=== PATIENT | male | born 1995 | race Caucasian/White ===

== ENCOUNTER 2019-02-20 16:33 | Emergency (ER) | payer BC, MEDICAID ==
[2019-02-20 17:00] VITALS: BP 128/84
--- NOTE | 2019-02-20 17:30 | EDM.PDOCBH ---
ED HPI GENERAL MEDICAL PROBLEM - General Chief Complaint: Behavioral/Psych Stated Complaint: HEART RACING HAD A PAST PANIC ATTACK COUPLE DAYS Time Seen by Provider: 02/20/19 17:21 Source of Information: Reports: Patient History Limitations: Reports: No Limitations - History of Present Illness INITIAL COMMENTS - FREE TEXT/NARRATIVE: [employer] pt was playing video games and became very panicy. He has continued to feel that way since that time. He feels like his pulse is rapid and at this time it is 60. Onset: Other ( started lex[employer]. ) Duration: Hour(s): Location: Reports: Chest Associated Symptoms: Reports: No Other Symptoms - Related Data Allergies Allergy/AdvReac Type Severity Reaction Status Date / Time No Known Allergies Allergy Verified 02/20/19 16:47 Home Meds: Home Meds PARoxetine HCl [Paroxetine HCl] 02/20/19 [History] Past Medical History - Past Health History Medical/Surgical History: Denies Medical/Surgical History Social & Family History - Tobacco Use Smoking Status *Q: Current Every Day Smoker Years of Tobacco use: 10 Packs/Tins Daily: 0.5 ED ROS GENERAL - Review of Systems Review Of Systems: See Below Constitutional: Reports: No Symptoms HEENT: Reports: No Symptoms Respiratory: Reports: No Symptoms Cardiovascular: Reports: Other (pt felt like his heart is racing. ) Endocrine: Reports: No Symptoms GI/Abdominal: Reports: No Symptoms : Reports: No Symptoms Musculoskeletal: Reports: Hand Pain Skin: Reports: No Symptoms Neurological: Reports: No Symptoms ED EXAM, BEHAVIORAL HEALTH - Physical Exam Exam: See Below Text/Narrative:: pt arrived feeling paniky and he just is not able to relax. Exam Limited By: No Limitations General Appearance: Alert, Anxious, Other (pupils equal and reactive. ) Ears: Normal TMs Nose: Normal Inspection Throat/Mouth: Normal Inspection Head: Atraumatic Neck: Normal Inspection Respiratory/Chest: No Respiratory Distress Cardiovascular: Regular Rate, Rhythm, Other ( rate is 60, ) GI/Abdominal: Soft, Non-Tender (Male) Exam: Deferred Rectal (Males) Exam: Deferred Back Exam: Normal Inspection Extremities: Normal Inspection Neurological: Alert, Normal Cognition COURSE, BEHAVIORAL HEALTH COMP - Course Vital Signs: Last Vital Signs Temp 36.4 C 02/20/19 16:59 Pulse 66 02/20/19 16:59 Resp 14 02/20/19 16:59 BP 128/84 02/20/19 16:59 Pulse Ox 98 02/20/19 16:59 Orders, Labs, Meds: Active Orders 24 hr Category Date Time Status BASIC METABOLIC PANEL,BMP [CHEM] Stat Lab 02/20/19 17:37 Received TSH ULTRASENSITIVE [CHEM] Stat Lab 02/20/19 17:37 Received LORazepam [Ativan] Med 02/20/19 18:01 Once 0.5 mg PO ONETIME ONE Laboratory Tests 02/20/19 02/20/19 02/20/19 Range/Units 17:18 17:18 17:37 WBC 8.0 (4.5-11.0) K/uL RBC 5.73 (4.30-5.90) M/uL Hgb 16.0 H (12.0-15.0) g/dL Hct 46.9 (40.0-54.0) % MCV 82 (80-98) fL MCH 28 (27-31) pg MCHC 34 (32-36) % Plt Count 256 (150-400) K/uL Neut % (Auto) 54 (36-66) % Lymph % (Auto) 40 (24-44) % [place] % (Auto) 5 (2-6) % Eos % (Auto) 1 L (2-4) % Baso % (Auto) 1 (0-1) % Urine Color Yellow Urine Appearance Clear Urine pH 7.0 (4.5-8.0) Ur Specific [place] 1.015 (1.008-1.030) Urine Protein Negative (NEGATIVE) mg/dL Urine Glucose (UA) Normal (NEGATIVE) mg/dL Urine Ketones Negative (NEGATIVE) mg/dL Urine Occult Blood Negative (NEGATIVE) Urine Nitrite Negative (NEGAITVE) Urine Bilirubin Negative (NEGATIVE) Urine Urobilinogen Normal (NORMAL) mg/dL Ur Leukocyte Esterase Negative (NEGATIVE) Urine RBC Not seen (0-5) Urine WBC 0-5 (0-5) Ur Epithelial Cells Not seen Amorphous Sediment Not seen Urine Bacteria Moderate Urine Mucus Numerous Urine Opiates Screen Negative (NEGATIVE) Ur Oxycodone Screen Negative (NEGATIVE) Urine Methadone Screen Negative (NEGATIVE) Ur Propoxyphene Screen Negative (NEGATIVE) Ur Barbiturates Screen Negative (NEGATIVE) Ur Tricyclics Screen Negative (NEGATIVE) Ur Phencyclidine Scrn Negative (NEGATIVE) Ur Amphetamine Screen Negative (NEGATIVE) U Methamphetamines Scrn Negative (NEGATIVE) Urine MDMA Screen Negative (NEGATIVE) U Benzodiazepines Scrn Negative (NEGATIVE) U Cocaine Metab Screen Negative (NEGATIVE) U Marijuana (THC) Screen Presumptive positive H (NEGATIVE) Medications Discontinued Medications Generic Name Dose Route Start Last Admin Trade Name Freq PRN Reason Stop Dose Admin Lorazepam 0.5 mg 02/20/19 17:36 02/20/19 17:40 Ativan PO 02/20/19 17:37 0.5 mg ONETIME ONE Administration Medical Clearance: 02/20/19 17:49 pt had a neg drug screen except for [place] which he admitted to. When he did smoke it yesterday it did not make him feel different. Hb and wbc were normal. 02/20/19 18:02 Departure - Departure Time of Disposition: 18:03 Disposition: DC/Tfer to [facility]ospice[facility] Condition: Fair Clinical Impression: Panic attack - Discharge Information Referrals: PCP,None [Primary Care Provider] - Forms: ED Department Discharge Care Plan Goals: ativan .5 q6h prn for ongoing stressful feeling#4, cont paxil and be sure it is taken daily. see regular Dr If persistent symptoms. - My Orders Last 24 Hours: My Active Orders 02/20/19 17:37 BASIC METABOLIC PANEL,BMP [CHEM] Stat TSH ULTRASENSITIVE [CHEM] Stat 02/20/19 18:01 LORazepam [Ativan] 0.5 mg PO ONETIME ONE - Assessment/Plan Last 24 Hours: My Active Orders 02/20/19 17:37 BASIC METABOLIC PANEL,BMP [CHEM] Stat TSH ULTRASENSITIVE [CHEM] Stat 02/20/19 18:01 LORazepam [Ativan] 0.5 mg PO ONETIME ONE
[2019-02-20] MEDS: LORazepam 0.5 MG Tab PO ONE ×2 (17:40→18:15)
== END 2019-02-20 18:36 | disposition home or self-care (01) ==
LOC: JP.ED 16:33
DX: F41.0 Panic disorder [episodic paroxysmal anxiety] (principal); F17.210 Nicotine dependence, cigarettes, uncomplicated; Z79.899 Other long term (current) drug therapy
CPT/HCPCS: 36415; 80048; 80305-QW; 81001; 84443; 85025; 99284; A9270-GY

== ENCOUNTER 2023-03-17 06:32 | Day surgery (SDC) | payer MEDICAID ==
[2023-03-17] MEDS ORDERED: Lactated Ringers 1,000 ML IV SCH (07:00)
[2023-03-17] MEDS ORDERED: Midazolam 1 MG/ML 2 ML SDV ONE (07:26)
[2023-03-17] MEDS ORDERED: Propofol 200 MG/20 ML SDV ONE ×2 (07:26→08:03)
[2023-03-17] MEDS ORDERED: fentaNYL 100 MCG/2 ML SDV ONE (07:26)
[2023-03-17 09:35] VITALS: BP 125/83; PULSE 57
== END 2023-03-17 09:45 | disposition home or self-care (01) ==
LOC: JP.SDS 06:32
PROVIDERS: ATTEND Student in an Organized Health Care Education/Training Program
DX: K92.1 Melena (principal); K64.8 Other hemorrhoids; F90.9 Attention-deficit hyperactivity disorder, unspecified type
CPT/HCPCS: 45378; J2250; J2704; J3010; J7120